=== PATIENT | female | born 1970 | race Caucasian/White ===

== ENCOUNTER 2022-05-12 06:30 | Day surgery (SDC) | payer BC ==
[2022-05-12] MEDS ORDERED: Lactated Ringers 1,000 ML IV SCH (07:00)
[2022-05-12] MEDS ORDERED: Midazolam 1 MG/ML 2 ML SDV ONE (07:17)
[2022-05-12] MEDS ORDERED: fentaNYL 100 MCG/2 ML SDV ONE (07:17)
[2022-05-12] MEDS ORDERED: Propofol 200 MG/20 ML SDV ONE ×2 (07:17→07:49)
== END 2022-05-12 09:10 | disposition home or self-care (01) ==
LOC: JP.SDS 06:30
PROVIDERS: ATTEND Family Medicine
DX: Z12.11 Encounter for screening for malignant neoplasm of colon (principal); K21.9 Gastro-esophageal reflux disease without esophagitis; Z98.890 Other specified postprocedural states; Z79.899 Other long term (current) drug therapy; Z87.891 Personal history of nicotine dependence
CPT/HCPCS: 43239; 45378; 88305; J2250; J2704; J3010; J7120